=== PATIENT | male | born 1960 | race Caucasian/White ===

== ENCOUNTER 2017-05-10 10:10 | Emergency (ER) | payer BC, OTHER ==
[~2017-05-10] VITALS: Ht 188 cm; Wt 79.9 kg
[~2017-05-10 10:10] MED LIST: NORCO 5/3251 TABLET PO
[2017-05-10 12:00] LABS: EOSINOPHIL (%) 0.8 % (0-5); EOSINOPHIL COUNT 0.1 K/uL (0-0.3); HEMATOCRIT 40.3 % (38.0-50.0); IMMATURE GRANULOCYTE (%) 0.5 % (0.0-0.7); LYMPHOCYTE COUNT 0.9 K/uL (1.0-2.8); MCHC 35.5 G/DL (30.0-36.0); MCV 98.8 FL (86-99); MEAN PLAT.VOLUME 10.2 uM^3 (9.0-12.4); MONOCYTE (%) 9.1 % (3-12); MONOCYTE COUNT 0.6 K/uL (0-0.8); NEUTROPHIL (%) 76.3 % (45-76); PLATELET COUNT 105 K/uL (156-360); RBC DIS.WIDTH-CV 10.8 % (11.8-14.6); RBC DIS.WIDTH-SD 39.3 % (39-53); RED BLOOD COUNT 4.08 M/uL (4.00-5.50); WHITE BLOOD COUNT 6.5 K/uL (4.1-10.2)
[2017-05-10 12:21] LABS: CHLORIDE 99 mEq/L (99-109); POTASSIUM 3.5 mEq/L (3.7-5.4); SODIUM 132 mEq/L (136-147)
[2017-05-10 12:24] LABS: GLUCOSE 119 mg/dL (70-99)
[2017-05-10 12:25] LABS: ANION GAP 14 MEQ/L (2-14)
[2017-05-10 12:26] LABS: TOTAL BILIRUBIN 0.4 mg/dL (0.0-1.0)
[2017-05-10 12:27] LABS: ALKALINE PHOSPHATASE 76 IU/L (3-129); GFR ESTIMATE (CALCULATED) > 59 mL/min/
[2017-05-10 12:28] LABS: UREA NITROGEN (BUN) 5 mg/dL (9-23)
[2017-05-10 12:30] LABS: URIC ACID 3.4 mg/dL (3.1-9.2)
[2017-05-10 13:19] LABS: ERTH.SED.RATE 53 MM/HR (0-20)
[2017-05-10] MEDS ORDERED: MOTRIN600 MG PO (17:55)
[2017-05-10] MEDS ORDERED: PERCOCET 5/31 TABLET PO (17:55)
[2017-05-10 18:23] VITALS: BP 132/81
== END 2017-05-10 18:25 | disposition home or self-care (01) ==
LOC: EME 10:10
PROVIDERS: Emergency Medicine
PROC: 2W3DX1Z Immobilization of Left Lower Arm using Splint (ICD-10-PCS; principal; 2017-05-10)
DX: S66.912A Strain of unspecified muscle, fascia and tendon at wrist and hand level, left hand, initial encounter (principal); X50.0XXA Overexertion from strenuous movement or load, initial encounter; X50.3XXA Overexertion from repetitive movements, initial encounter; Y92.69 Other specified industrial and construction area as the place of occurrence of the external cause; Y99.0 Civilian activity done for income or pay; F17.200 Nicotine dependence, unspecified, uncomplicated
CPT/HCPCS: 73110; 73223; 80053; 84550; 85025; 85651; 99281; 99284